=== PATIENT | female | born 1990 | race Caucasian/White ===

== ENCOUNTER → 2017-06-19 | Outpatient (CLI) | payer OTHER ==
[~2017-06-19] VITALS: Ht 160 cm; Wt 61.4 kg
[~2017-06-19] MED LIST: FISH OIL 1,0001 EAC7 PO; IRON18 MG PO; PRENATAL TABLE1 EAC3 PO
[2017-06-19 15:43] VITALS: BP 103/54
== END | disposition home or self-care (01) ==
LOC: IVINF 15:16
DX: Z34.80 Encounter for supervision of other normal pregnancy, unspecified trimester (principal); Z3A.00 Weeks of gestation of pregnancy not specified; Z67.91 Unspecified blood type, Rh negative
CPT/HCPCS: J2790

== ENCOUNTER 2017-09-04 13:18 | Inpatient (IN) | payer OTHER ==
[~2017-09-04] VITALS: Ht 160 cm; Wt 61.8 kg
[2017-09-04] VITALS (7 sets, daily range): BP systolic 101–126; BP diastolic 56–72
[2017-09-04 14:28] LABS: BASOPHIL (%) 0.3 % (0-1); EOSINOPHIL (%) 0.1 % (0-5); HEMATOCRIT 35.5 % (36.0-46.0); HEMOGLOBIN 12.2 G/DL (11.9-15.5); IMMATURE GRANULOCYTE (%) 0.5 % (0.0-0.7); LYMPHOCYTE COUNT 1.8 K/uL (1.0-2.8); MCH 31.3 PG (29.0-34.0); MCHC 34.4 G/DL (30.0-36.0); MONOCYTE (%) 5.9 % (3-12); MONOCYTE COUNT 0.5 K/uL (0-0.8); NEUTROPHIL (%) 73.2 % (45-76); NEUTROPHIL COUNT 6.5 K/uL (1.8-6.4); PLATELET COUNT 220 K/uL (156-360); RBC DIS.WIDTH-CV 12.2 % (11.8-14.6); RBC DIS.WIDTH-SD 40.3 % (39-53); WHITE BLOOD COUNT 8.9 K/uL (4.1-10.2)
[2017-09-04 15:47] LABS: AMPHETAMINE NEGATIVE (500 ng/mL); BARBITURATES NEGATIVE (200 ng/mL); BENZODIAZEPINES NEGATIVE (150 ng/mL); BUPRENORPHINE NEGATIVE (10 ng/mL); COCAINE NEGATIVE (150 ng/mL); METHADONE NEGATIVE (200 ng/mL); METHAMPHETAMINE NEGATIVE (500 ng/mL); OPIATES (MORPHINE) NEGATIVE (100 ng/mL); OXYCODONE NEGATIVE (100 ng/mL); PHENCYCLIDINE NEGATIVE (25 ng/mL); PROPOXYPHENE NEGATIVE (300 ng/mL); THC CANNABINOIDS NEGATIVE (50 ng/mL); TRICYCLIC ANTIDEPRESSANTS NEGATIVE (300 ng/mL)
[2017-09-05 06:48] LABS: BASOPHIL (%) 0.3 % (0-1); EOSINOPHIL (%) 0.2 % (0-5); HEMATOCRIT 33.4 % (36.0-46.0); HEMOGLOBIN 11.3 G/DL (11.9-15.5); IMMATURE GRANULOCYTE (%) 0.5 % (0.0-0.7); LYMPHOCYTE COUNT 2.6 K/uL (1.0-2.8); MCH 31.5 PG (29.0-34.0); MCHC 33.8 G/DL (30.0-36.0); MONOCYTE (%) 6.4 % (3-12); MONOCYTE COUNT 0.8 K/uL (0-0.8); NEUTROPHIL (%) 71.6 % (45-76); NEUTROPHIL COUNT 8.7 K/uL (1.8-6.4); PLATELET COUNT 183 K/uL (156-360); RBC DIS.WIDTH-CV 12.5 % (11.8-14.6); RBC DIS.WIDTH-SD 42.5 % (39-53); RED BLOOD COUNT 3.59 M/uL (3.80-5.20); WHITE BLOOD COUNT 12.1 K/uL (4.1-10.2)
[2017-09-05] MEDS ORDERED: Tylenol Extra Streng PO (14:43)
[2017-09-05] MEDS ORDERED: IBUPROFEN800 MG PO (14:43)
[2017-09-05] MEDS ORDERED: PUMP IN STYLE1 EACH MC (14:46)
[2017-09-05 16:17] VITALS: BP 113/68
== END 2017-09-05 17:40 | disposition home or self-care (01) | DRG 775 ==
LOC: LDRP-OP 13:18 → 2WEST 13:20
PROVIDERS: Advanced Practice Midwife
PROC: 10E0XZZ Delivery of Products of Conception, External Approach (ICD-10-PCS; principal; 2017-09-04)
DX: O62.3 Precipitate labor (principal); O26.62 Liver and biliary tract disorders in childbirth; Z37.0 Single live birth; Z3A.39 39 weeks gestation of pregnancy; O26.893 Other specified pregnancy related conditions, third trimester; K80.80 Other cholelithiasis without obstruction; O99.62 Diseases of the digestive system complicating childbirth; K83.9 Disease of biliary tract, unspecified; Z81.8 Family history of other mental and behavioral disorders; Z82.49 Family history of ischemic heart disease and other diseases of the circulatory system; F33.9 Major depressive disorder, recurrent, unspecified; F41.9 Anxiety disorder, unspecified; O99.344 Other mental disorders complicating childbirth; O26.13 Low weight gain in pregnancy, third trimester
CPT/HCPCS: 85025; J7120